=== PATIENT | male | born 1945 | race Caucasian/White ===

== ENCOUNTER 2025-03-19 06:36 | Day surgery (SDC) | payer OTHER, SELFPAY ==
[2025-03-05 10:58] LABS: Hematocrit 44.6 % (39.0-52.0); Hemoglobin 14.7 g/dL (13.0-18.0); Mean Corp Hgb Conc. 33.0 g/dL (33.0-37.0); Mean Corpuscular Volume 93.7 fL (80.0-94.0); Platelet Count 227 10^3/uL (130-400); Red Cell Dist. Width 12.2 % (11.5-14.5)
[2025-03-05 11:33] LABS: Blood Urea Nitrogen 18 mg/dl (9-20); Calcium 9.4 mg/dl (8.4-10.2); Carbon Dioxide 27 mmol/L (22-30); Chloride 105 mmol/L (98-107); Glucose 93 mg/dl (70-99); Potassium 4.2 mmol/L (3.5-5.1); Sodium 136 mmol/L (135-145); eGFR > 60.00
[2025-03-05 14:40] VITALS: BMI 24.4
[2025-03-19] VITALS (7 sets, daily range): BP systolic 118–146; BP diastolic 67–78; BMI 24.4
[2025-03-19] MEDS: NORMOSOL-R/PLASMALYTE-A 1000 IV (09:05)
== END 2025-03-19 12:38 | disposition home or self-care (01) ==
LOC: SDS 06:36
PROVIDERS: ATTENDING PHYSICIAN Specialist; FAMILY PHYSICIAN Student in an Organized Health Care Education/Training Program
DX: N43.41 Spermatocele of epididymis, single (principal)
CPT/HCPCS: 54840; 36415; 80048; 85027; 88304; 93005